=== PATIENT | female | born 1955 | race African-American/Black ===

== ENCOUNTER 2017-08-05 05:19 | Inpatient (IN) | payer MEDICARE, OTHER ==
[~2017-08-05] VITALS: Ht 154.9 cm; Wt 60.3 kg
[2017-08-05] VITALS (38 sets, daily range): BP systolic 95–172; BP diastolic 53–97
[2017-08-05] MEDS ORDERED: MORPHINE SULFATE 4 MG/ML CPJ (NOT FOR IM USE) IV ONE ×2 (06:45→08:15)
[2017-08-05 06:48] LABS: BASOPHILS % 0.4 % (0.0-2.0); EOSINOPHILS % 0.5 % (0.0-5.0); HEMATOCRIT. 44.6 % (36.0-48.0); LYMPHOCYTES % 10.3 % (20.0-50.0); MEAN CORPUSCULAR HEMOGLOBIN 28.6 pg (28.0-32.0); MEAN CORPUSCULAR VOLUME 84.7 fL (81.0-99.0); MEAN PLATELET VOLUME 7.7 fl (7.4-10.4); MONOCYTES % 4.3 % (2.0-8.0); NEUTROPHILS % 84.5 % (40.0-76.0); PLATELET 385 x1000/uL (130-400); RED BLOOD CELL COUNT 5.26 mill/uL (4.2-5.4); RED CELL DISTRIBUTION WIDTH 15.3 % (11.6-14.6)
[2017-08-05 06:53] LABS: CHLORIDE 97 mEq/L (98-107)
[2017-08-05 06:55] LABS: INR 1.1; PROTHROMBIN TIME 11.4 sec (9.4-11.6)
[2017-08-05] MEDS ORDERED: METRONIDAZOLE 500 MG PREMIX 100 ML IV ONE (07:15)
[2017-08-05] MEDS ORDERED: AZTREONAM 2 GM in DEXT 5% WATER 100 ML IV SCH (07:15)
[2017-08-05] MEDS ORDERED: SODIUM CHLORIDE 0.9% 1,000 ML IV ONE (07:31)
[2017-08-05] MEDS ORDERED: DEXT 5% WATER + KCL 20MEQ/L 1,000 ML IV STA (08:36)
[2017-08-05] MEDS ORDERED: BUPIVACAINE HCL 0.5% (5MG/ML) 50ML ONE (08:38)
[2017-08-05] MEDS ORDERED: KCL 20MEQ/100ML PREMIX 100 ML IV STA (08:55)
[2017-08-05] MEDS ORDERED: GLYCOPYRROLATE 0.2 MG/ML 2ML VIAL ONE (09:09)
[2017-08-05] MEDS ORDERED: METOCLOPRAMIDE HCL 10MG/2ML VIAL ONE (09:09)
[2017-08-05] MEDS ORDERED: NEOSTIGMINE METHYLSULFATE 1MG/ML 10 ML VIAL ONE (09:09)
[2017-08-05] MEDS ORDERED: PROPOFOL 200MG/20ML VIAL IV ONE (09:09)
[2017-08-05] MEDS ORDERED: MIDAZOLAM HCL 2 MG/2 ML VIAL ONE (09:09)
[2017-08-05] MEDS ORDERED: LIDOCAINE HCL/PF 1% 10 MG/ML 5ML VIAL ONE (09:09)
[2017-08-05] MEDS ORDERED: FENTANYL CITRATE/PF 50MCG/ML 2ML VIAL ONE ×2 (09:09→10:45)
[2017-08-05] MEDS ORDERED: ROCURONIUM BROMIDE 10MG/ML VIAL 5ML IV ONE (09:09)
[2017-08-05] MEDS ORDERED: ONDANSETRON HCL 4MG/2ML VIAL ONE (09:09)
[2017-08-05] MEDS ORDERED: PHENYLEPHRINE HCL 10 MG/ML 1ML (IV VIAL) IV ONE (10:09)
[2017-08-05] MEDS ORDERED: ONDANSETRON HCL 4MG/2ML VIAL IV PRN (10:30)
[2017-08-05] MEDS ORDERED: IPRATROPIUM/ALBUTEROL 0.5-3(2.5)MG/3ML NEB INH PRN (10:30)
[2017-08-05] MEDS ORDERED: DIPHENHYDRAMINE 50MG/ML VIAL IV PRN (10:30)
[2017-08-05] MEDS ORDERED: ACETAMINOPHEN 650MG SUPP PR PRN (10:30)
[2017-08-05] MEDS ORDERED: ALBUMIN HUMAN 12.5G/250ML (5%) IV ONE (11:07)
[2017-08-05] MEDS ORDERED: LABETALOL HCL 5MG/ML VIAL 20ML IV ONE (11:50)
[2017-08-05] MEDS: MORPHINE SULFATE 4 MG/ML CPJ (NOT FOR IM USE) IV PRN ×4 (12:54→23:02)
[2017-08-05 13:23] LABS: BG BASE EXCESS -6.7 mmol/L (-2.0-2.0); BG CARBOXYHEMOGLOBIN 0.6 % (0.5-1.5); BG DEOXYHEMOGLOBIN 0.3 % (0.0-5.0); BG FRACTION INSPIRED OXYGEN 100; BG HCO3 ACT 19.2 mmol/L (22.0-26.0); BG METHEMOGLOBIN 0.8 % (0.0-1.5); BG OXYGEN SATURATION 99.7 % (92.0-98.5); BG OXYHEMOGLOBIN 98.3 % (94.0-97.0); BG PCO2 39.8 mmHg (35.0-45.0); BG PH 7.302 (7.350-7.450); BG PRESSURE SUPPORT 10; BG SAMPLE SITE LEFT RADIAL; BG TIDAL VOLUME(mL) 500 mL; BG VENT MODE VENT - SIMV; BG VENT RATE 8 set
[2017-08-05] MEDS ORDERED: IPRATROPIUM/ALBUTEROL 0.5-3(2.5)MG/3ML NEB HHN PRN (14:00)
[2017-08-05 14:09] LABS: HEMATOCRIT. 39.2 % (36.0-48.0); HEMOGLOBIN. 12.7 g/dL (12.0-16.0); MEAN CORPUSCULAR HEMOGLOBIN 27.9 pg (28.0-32.0); MEAN CORPUSCULAR VOLUME 86.3 fL (81.0-99.0); PLATELET 328 x1000/uL (130-400); RED BLOOD CELL COUNT 4.54 mill/uL (4.2-5.4); RED CELL DISTRIBUTION WIDTH 15.1 % (11.6-14.6)
[2017-08-05 14:10] LABS: INR 1.1; PARTIAL THROMBOPLASTIN TIME 25.7 sec (23.4-31.0); PROTHROMBIN TIME 11.9 sec (9.4-11.6)
[2017-08-05 14:19] LABS: CHLORIDE 96 mEq/L (98-107)
[2017-08-05 14:26] LABS: PHOSPHORUS 4.2 mg/dL (2.5-4.9)
[2017-08-05] MEDS: DEXT 5%/0.45% NACL KCL 20MEQ/L 1,000 ML IV SCH ×2 (14:35→23:01)
[2017-08-05] MEDS ORDERED: POTASSIUM CHLORIDE INJ 40 MEQ in DEXT 5% WATER 250 ML IV SCH (15:00)
[2017-08-05] MEDS ORDERED: VANCOMYCIN 1250MG in DEXTROSE 5% WATER 250ML IV SCH (15:00)
[2017-08-05 15:05] LABS: BG BASE EXCESS -3.5 mmol/L (-2.0-2.0); BG CARBOXYHEMOGLOBIN 0.5 % (0.5-1.5); BG DEOXYHEMOGLOBIN 1.1 % (0.0-5.0); BG FRACTION INSPIRED OXYGEN 40; BG HCO3 ACT 22.2 mmol/L (22.0-26.0); BG METHEMOGLOBIN 0.7 % (0.0-1.5); BG OXYGEN SATURATION 98.9 % (92.0-98.5); BG OXYHEMOGLOBIN 97.7 % (94.0-97.0); BG PCO2 42.1 mmHg (35.0-45.0); BG PH 7.339 (7.350-7.450); BG PO2 166.3 mmHg (75.0-100.0); BG PRESSURE SUPPORT 8; BG SAMPLE SITE RIGHT BRACHIAL; BG TOTAL HEMOGLOBIN 12.9 g/dL (12.0-18.0); BG VENT MODE VENT - CPAP
[2017-08-05] MEDS ORDERED: INSULIN LISPRO 100 UNITS/ML SUBCUT SCH (15:30)
[2017-08-05] MEDS: BLOOD SUGAR DIAGNOSTIC STRIP TEST SCH ×2 (15:30→18:00)
[2017-08-05] MEDS ORDERED: DEXTROSE 50% WATER 50ML SYRINGE IV PRN (15:30)
[2017-08-05] MEDS: AZTREONAM 2 GM in DEXT 5% WATER 100 ML IV SCH ×2 (15:48→23:01)
[2017-08-05] MEDS: LEVOFLOXACIN 500MG PREMIX 100 ML IV SCH (15:59)
[2017-08-05] MEDS ORDERED: MAGNESIUM 2 G PREMIX 50 ML IV SCH (17:00)
[2017-08-05 17:27] LABS: PLATELET ESTIMATE NORMAL
[2017-08-05] MEDS: INSULIN LISPRO 100 UNITS/ML SUBCUT SCH (18:06)
[2017-08-05 19:01] LABS: CLARITY URINE CLEAR (CLEAR); COLOR URINE YELLOW (YELLOW); KETONES URINE TRACE (NEGATIVE); LEUKOCYTE ESTERASE URINE NEGATIVE (NEGATIVE); NITRITE URINE NEGATIVE (NEGATIVE); OCCULT BLOOD URINE 2+ (NEGATIVE); PROTEIN URINE NEGATIVE (NEGATIVE); SPECIFIC GRAVITY URINE 1.034 (1.005-1.030)
[2017-08-05] MEDS: PANTOPRAZOLE SODIUM 40 MG/VIAL IV SCH (20:24)
[2017-08-06] VITALS (46 sets, daily range): BP systolic 85–145; BP diastolic 30–107
[2017-08-06] MEDS: IPRATROPIUM/ALBUTEROL 0.5-3(2.5)MG/3ML NEB HHN SCH ×4 (00:32→20:28)
[2017-08-06] MEDS: BLOOD SUGAR DIAGNOSTIC STRIP TEST SCH ×5 (00:53→23:25)
[2017-08-06] MEDS: INSULIN LISPRO 100 UNITS/ML SUBCUT SCH ×5 (01:28→23:26)
[2017-08-06] MEDS: MORPHINE SULFATE 4 MG/ML CPJ (NOT FOR IM USE) IV PRN ×3 (01:30→09:05)
[2017-08-06] MEDS: VANCOMYCIN 750 MG PREMIX 150 ML IV SCH ×2 (03:00→14:58)
[2017-08-06 05:51] LABS: HEMOGLOBIN. 11.5 g/dL (12.0-16.0); MEAN CORPUSCULAR HEMOGLOBIN 28.4 pg (28.0-32.0); PLATELET 270 x1000/uL (130-400); RED BLOOD CELL COUNT 4.05 mill/uL (4.2-5.4); RED CELL DISTRIBUTION WIDTH 14.6 % (11.6-14.6)
[2017-08-06 06:16] LABS: CHLORIDE 98 mEq/L (98-107)
[2017-08-06 06:31] LABS: PHOSPHORUS 2.5 mg/dL (2.5-4.9)
[2017-08-06] MEDS: AZTREONAM 2 GM in DEXT 5% WATER 100 ML IV SCH ×2 (09:04→20:42)
[2017-08-06] MEDS: PANTOPRAZOLE SODIUM 40 MG/VIAL IV SCH ×2 (09:04→20:43)
[2017-08-06] MEDS: DEXT 5%/0.45% NACL KCL 20MEQ/L 1,000 ML IV SCH ×2 (10:05→21:38)
[2017-08-06] MEDS: HYDROMORPHONE HCL/PF 2MG/ML CPJ IV PRN ×3 (11:39→20:44)
[2017-08-06 11:51] LABS: PLATELET ESTIMATE NORMAL
[2017-08-06] MEDS: LEVOFLOXACIN 500MG PREMIX 100 ML IV SCH (14:32)
[2017-08-07] VITALS (31 sets, daily range): BP systolic 90–143; BP diastolic 35–79
[2017-08-07] MEDS: HYDROMORPHONE HCL/PF 2MG/ML CPJ IV PRN ×5 (01:22→23:39)
[2017-08-07] MEDS: IPRATROPIUM/ALBUTEROL 0.5-3(2.5)MG/3ML NEB HHN SCH ×4 (01:36→20:54)
[2017-08-07] MEDS: VANCOMYCIN 750 MG PREMIX 150 ML IV SCH ×2 (03:00→15:00)
[2017-08-07] MEDS: INSULIN LISPRO 100 UNITS/ML SUBCUT SCH ×4 (05:43→23:37)
[2017-08-07] MEDS: BLOOD SUGAR DIAGNOSTIC STRIP TEST SCH ×4 (06:07→23:37)
[2017-08-07] MEDS: PANTOPRAZOLE SODIUM 40 MG/VIAL IV SCH ×2 (08:59→20:17)
[2017-08-07] MEDS: AZTREONAM 2 GM in DEXT 5% WATER 100 ML IV SCH ×2 (08:59→20:17)
[2017-08-07 10:04] LABS: HEMATOCRIT. 32.1 % (36.0-48.0); HEMOGLOBIN. 10.3 g/dL (12.0-16.0); MEAN CORPUSCULAR HEMOGLOBIN 27.2 pg (28.0-32.0); MEAN CORPUSCULAR VOLUME 84.5 fL (81.0-99.0); MEAN PLATELET VOLUME 8.2 fl (7.4-10.4); PLATELET 250 x1000/uL (130-400); RED BLOOD CELL COUNT 3.81 mill/uL (4.2-5.4); RED CELL DISTRIBUTION WIDTH 15.1 % (11.6-14.6)
[2017-08-07 10:25] LABS: CHLORIDE 102 mEq/L (98-107)
[2017-08-07] MEDS: DEXT 5%/0.45% NACL KCL 20MEQ/L 1,000 ML IV SCH ×2 (13:23→20:23)
[2017-08-07 13:55] LABS: PLATELET ESTIMATE NORMAL
[2017-08-07] MEDS: LEVOFLOXACIN 500MG PREMIX 100 ML IV SCH (15:45)
[2017-08-07] MEDS ORDERED: PHENOL/SODIUM PHENOLATE 1.4% SRPAY 177ML MM PRN (18:00)
[2017-08-08] VITALS (27 sets, daily range): BP systolic 97–168; BP diastolic 45–85
[2017-08-08] MEDS: IPRATROPIUM/ALBUTEROL 0.5-3(2.5)MG/3ML NEB HHN SCH ×4 (02:27→20:11)
[2017-08-08] MEDS: VANCOMYCIN 750 MG PREMIX 150 ML IV SCH ×2 (02:35→14:54)
[2017-08-08] MEDS: BLOOD SUGAR DIAGNOSTIC STRIP TEST SCH ×3 (05:45→17:45)
[2017-08-08] MEDS: INSULIN LISPRO 100 UNITS/ML SUBCUT SCH ×3 (05:46→17:45)
[2017-08-08] MEDS: DEXT 5%/0.45% NACL KCL 20MEQ/L 1,000 ML IV SCH ×2 (08:04→10:00)
[2017-08-08] MEDS: PANTOPRAZOLE SODIUM 40 MG/VIAL IV SCH ×2 (09:06→20:34)
[2017-08-08] MEDS: AZTREONAM 2 GM in DEXT 5% WATER 100 ML IV SCH ×2 (09:06→20:34)
[2017-08-08] MEDS: HYDROMORPHONE HCL/PF 2MG/ML CPJ IV PRN (09:07)
[2017-08-08] MEDS: LEVOFLOXACIN 500MG PREMIX 100 ML IV SCH (14:53)
[2017-08-08] MEDS: METRONIDAZOLE 500 MG PREMIX 100 ML IV SCH (17:37)
[2017-08-09] MEDS: IPRATROPIUM/ALBUTEROL 0.5-3(2.5)MG/3ML NEB HHN SCH ×3 (01:14→15:18)
[2017-08-09] MEDS: METRONIDAZOLE 500 MG PREMIX 100 ML IV SCH ×3 (01:18→16:00)
[2017-08-09] MEDS: DEXT 5%/0.45% NACL KCL 20MEQ/L 1,000 ML IV SCH ×2 (01:19→06:00)
[2017-08-09] MEDS: VANCOMYCIN 750 MG PREMIX 150 ML IV SCH ×2 (03:33→15:00)
[2017-08-09] MEDS: BLOOD SUGAR DIAGNOSTIC STRIP TEST SCH ×4 (05:53→18:00)
[2017-08-09] MEDS: INSULIN LISPRO 100 UNITS/ML SUBCUT SCH ×4 (05:58→18:00)
[2017-08-09 08:00] VITALS: BP 122/61
[2017-08-09] MEDS: HYDROMORPHONE HCL/PF 2MG/ML CPJ IV PRN ×2 (08:27→16:05)
[2017-08-09] MEDS: AZTREONAM 2 GM in DEXT 5% WATER 100 ML IV SCH (09:24)
[2017-08-09] MEDS: PANTOPRAZOLE SODIUM 40 MG/VIAL IV SCH (09:24)
[2017-08-09 12:00] VITALS: BP 108/57
[2017-08-09 14:00] VITALS: BP 118/57
[2017-08-09 14:06] VITALS: BP 122/61
[2017-08-09] MEDS: LEVOFLOXACIN 500MG PREMIX 100 ML IV SCH (16:02)
[2017-08-09 16:05] VITALS: BP 122/61
== END 2017-08-09 19:05 | DRG 853 ==
LOC: ER 05:35 → ORIP 07:42 → EDBEDREQ 07:45 → CVICU 12:02 → 6EST 08-08 22:00
PROVIDERS: ADMIT Hospitalist; ATTEND Hospitalist
PROC: 0DHA3UZ Insertion of Feeding Device into Jejunum, Percutaneous Approach (ICD-10-PCS; 2017-08-05)
PROC: 5A1935Z Respiratory Ventilation, Less than 24 Consecutive Hours (ICD-10-PCS; 2017-08-05)
PROC: 0D160ZA Bypass Stomach to Jejunum, Open Approach (ICD-10-PCS; 2017-08-05)
PROC: 0DB60ZZ Excision of Stomach, Open Approach (ICD-10-PCS; principal; 2017-08-05 09:00)
DX: A41.9 Sepsis, unspecified organism (principal); K25.5 Chronic or unspecified gastric ulcer with perforation; J96.00 Acute respiratory failure, unspecified whether with hypoxia or hypercapnia; J69.0 Pneumonitis due to inhalation of food and vomit; K65.9 Peritonitis, unspecified; E83.51 Hypocalcemia; E78.5 Hyperlipidemia, unspecified; E11.9 Type 2 diabetes mellitus without complications; K59.00 Constipation, unspecified; E78.00 Pure hypercholesterolemia, unspecified; E87.6 Hypokalemia; F17.210 Nicotine dependence, cigarettes, uncomplicated; I10 Essential (primary) hypertension; K66.0 Peritoneal adhesions (postprocedural) (postinfection); Z79.4 Long term (current) use of insulin; Z98.51 Tubal ligation status; Z88.0 Allergy status to penicillin
CPT/HCPCS: 36415; 36600; 71045; 74176; 80048; 80053; 80202; 81003; 82375; 82805; 82962; 83036; 83690; 83735; 84100; 85007; 85025; 85027; 85610; 85730; 86850; 86900; 86920; 87070; 88309; 88331; 93005; 93970; 94002; 94640; 96365; 96375; 97116; 97163; 97530; 99285; C1758; C1893; C9113; J1170; J1815; J1956; J2250; J2270; J2370; J2405; J2704; J2710; J2765; J3010; J3370; J3475; J3480; J3490; J7030; J7050; J7060; J7620; P9041; A4315